=== PATIENT | male | born 1970 | race Caucasian/White ===

== ENCOUNTER 2018-03-16 10:48 | Emergency (ER) | payer OTHER, MEDICARE ==
[2018-03-16 10:58] VITALS: BP 145/101
--- NOTE | 2018-03-16 12:05 | ER Document Report ---
ED Medical Screen (RME) - General Chief Complaint: Urinary Problem Stated Complaint: URINARY PROBLEM Time Seen by Provider: 03/16/18 12:03 Mode of Arrival: Ambulatory Information source: Patient Notes: 47-year-old man reports history of chronic kidney disease presents to the emergency room with "foamy urine". Patient does report having frequent right flank pain. He denies blood in the urine. [facility] TRAVEL OUTSIDE OF THE [place] IN LAST 30 DAYS: No - Related Data Allergies/Adverse Reactions: No Known Allergies Allergy (Verified 03/16/18 10:48) Physical Exam - Vital signs Vitals: Temp Pulse Resp BP Pulse Ox 98.8 F 99 18 145/101 H 96 03/16/18 10:56 03/16/18 10:56 03/16/18 10:56 03/16/18 10:56 03/16/18 10:56 Course - Vital Signs Vital signs: Temp Pulse Resp BP Pulse Ox 98.8 F 99 18 145/101 H 96 03/16/18 10:56 03/16/18 10:56 03/16/18 10:56 03/16/18 10:56 03/16/18 10:56
[2018-03-16 12:30] LABS: ABSOLUTE EOSINOPHILS # (AUTO) 0.1 10^3/uL (0.0-0.6); ABSOLUTE LYMPHOCYTES (AUTO) 2.2 10^3/uL (0.5-4.7); ABSOLUTE MONOCYTES (AUTO) 0.9 10^3/uL (0.1-1.4); ABSOLUTE NEUT (AUTO) 5.7 10^3/uL (1.7-8.2); BASOPHILS % (AUTO) 0.4 % (0-2); EOSINOPHILS % (AUTO) 0.9 % (0-6); HEMATOCRIT 51.8 % (37.9-51.0); HEMOGLOBIN 17.7 g/dL (13.5-17.0); LYMPHOCYTES % (AUTO) 24.8 % (13-45); MEAN CORPUSCULAR HGB CONC 34.2 g/dL (32.0-36.0); MEAN CORPUSCULAR VOLUME 91 fl (80-97); MONOCYTES % (AUTO) 9.6 % (3-13); PLATELET COUNT 190 10^3/uL (150-450); RED BLOOD COUNT 5.71 10^6/uL (4.35-5.55); RED CELL DISTRIBUTION WIDTH 13.8 % (11.5-14.0); SEGMENTED NEUTROPHILS % (AUTO) 64.3 % (42-78); TOTAL CELLS COUNTED % (AUTO) 100 %; WHITE BLOOD COUNT 8.9 10^3/uL (4.0-10.5)
[2018-03-16 12:36] LABS: APPEARANCE,URINE CLEAR; BILIRUBIN,URINE NEGATIVE (NEGATIVE); COLOR,URINE YELLOW; GLUCOSE, URINE NEGATIVE (NEGATIVE); KETONES,URINE NEGATIVE (NEGATIVE); LEUKOCYTE ESTERASE,URINE NEGATIVE (NEGATIVE); NITRITE,URINE NEGATIVE (NEGATIVE); PROTEIN,URINE NEGATIVE (NEGATIVE); URINE SPECIFIC GRAVITY 1.012; UROBILINOGEN,URINE NEGATIVE mg/dL (<2.0)
[2018-03-16 12:51] LABS: ALANINE AMINOTRANSFERASE 54 U/L (21-72); ALBUMIN 4.4 g/dL (3.5-5.0); ALKALINE PHOSPHATASE 105 U/L (38-126); ANION GAP 14 (5-19); ASPARTATE AMINO TRANSFERASE 28 U/L (17-59); BILIRUBIN,DIRECT 0.3 mg/dL (0.0-0.4); BILIRUBIN,TOTAL 0.4 mg/dL (0.2-1.3); BLOOD UREA NITROGEN 20 mg/dL (7-20); CALCIUM 9.7 mg/dL (8.4-10.2); CARBON DIOXIDE 26 mmol/L (22-30); CHLORIDE 105 mmol/L (98-107); GLUCOSE 105 mg/dL (75-110); POTASSIUM 4.6 mmol/L (3.6-5.0); SODIUM 145.2 mmol/L (137-145); TOTAL PROTEIN 7.6 g/dL (6.3-8.2)
--- NOTE | 2018-03-16 13:39 | ER Document Report ---
ED General - General Chief Complaint: Urinary Problem Stated Complaint: URINARY PROBLEM Time Seen by Provider: 03/16/18 12:03 Mode of Arrival: Ambulatory Notes: Patient says he woke this morning about 4 AM and drank some cranberry juice and then urinated and he saw urine covered by white foam. He says this has happened several times over the past week and a half or 2 weeks. Denies any difficulty urinating or discomfort urinating. Has not noticed any blood in his urine. Has not had any fevers. Patient does have a history of renal insufficiency for which he sees Dr. Johnson. He says his most recent creatinine was 1.4 in January. Says he has been told he has stage III kidney disease with flow rate of 53.9. Patient does not know the underlying basis for his renal insufficiency. Says he has had kidney stones before. TRAVEL OUTSIDE OF THE [place] IN LAST 30 DAYS: No - Related Data Allergies/Adverse Reactions: No Known Allergies Allergy (Verified 03/16/18 10:48) Past Medical History - General Information source: Patient - Social History Smoking Status: Former Smoker Chew tobacco use (# tins/day): No Frequency of alcohol use: Rare Drug Abuse: Bath salts Family History: Reviewed & Not Pertinent Patient has suicidal ideation: No Patient has homicidal ideation: No Renal/ Medical History: Reports: Hx End Stage Renal Disease, Hx Renal Insufficiency Review of Systems - Review of Systems Notes: REVIEW OF SYSTEMS: CONSTITUTIONAL : Denies fever. EENT: Denies eye, ear, nose or mouth or throat pain or other symptoms. CARDIOVASCULAR: Denies chest pain. RESPIRATORY: Denies cough, chest congestion, or shortness of breath. GASTROINTESTINAL: Denies abdominal pain or nausea, vomiting, or diarrhea. GENITOURINARY: Denies difficulty or painful urinating, urinary frequency, blood in urine. See HPI. MUSCULOSKELETAL: Denies back or neck pain. Denies joint pain or swelling. SKIN: Denies rash or skin lesions. NEUROLOGICAL: Denies LOC or altered mental status. Denies headache. Denies sensory loss or motor deficits. ALL OTHER SYSTEMS REVIEWED AND NEGATIVE. Physical Exam - Vital signs Vitals: Temp Pulse Resp BP Pulse Ox 98.8 F 99 18 145/101 H 96 03/16/18 10:56 03/16/18 10:56 03/16/18 10:56 03/16/18 10:56 03/16/18 10:56 Interpretation: Normal, Hypertensive - Mild - Notes Notes: PHYSICAL EXAMINATION: GENERAL: Well-appearing, in no acute distress. HEAD: Atraumatic, normocephalic. EYES: Pupils equal round and reactive to light, extraocular movements intact. ENT: oropharynx clear without exudates. Moist mucous membranes. NECK: Normal range of motion, supple. LUNGS: Breath sounds clear and equal bilaterally. HEART: Regular rate and rhythm without murmurs. ABDOMEN: Soft, nontender. No guarding or rebound. No masses. BACK: No tenderness throughout entire back. EXTREMITIES: Normal range of motion without pain. NEUROLOGICAL: Normal speech, normal gait. Normal sensory, motor, and reflex exams. Awake, alert, and oriented x3. Cranial nerves normal. PSYCH: Normal mood, normal affect. SKIN: Warm, dry, no rashes. Course - Re-evaluation Re-evalutation: 03/16/18 13:39 Went over patient's lab results, in particular his kidney functions. All of the latter appear to be nearly normal with a creatinine of 1.26. His hemoglobin (17.7) and hematocrit are increased and patient denies smoking cigarettes and denies using testosterone. I advised him that that was the extent of my knowledge base for polycythemia but recommended he follow-up with a escalation engineer and provided him with Dr. Giles's name and reference information. - Vital Signs Vital signs: Temp Pulse Resp BP Pulse Ox 98.8 F 99 18 145/101 H 96 03/16/18 10:56 03/16/18 10:56 03/16/18 10:56 03/16/18 10:56 03/16/18 10:56 - Laboratory Result Diagrams: 03/16/18 12:10 03/16/18 12:10 Laboratory results interpreted by me: 03/16/18 03/16/18 12:10 12:10 RBC 5.71 H Hgb 17.7 H Hct 51.8 H Sodium 145.2 H Creatinine 1.26 H Discharge - Discharge Clinical Impression: Polycythemia, Renal insufficiency, mild Condition: Fair Disposition: HOME, SELF-CARE Additional Instructions: Very Mild Kidney Function Abnormality Your evaluation has shown a very mild abnormality of your kidney function. An abnormal kidney function test can be caused by dehydration, acute kidney damage, blood vessel disease (such as with diabetes or chronic high blood pressure), or just old age. If the abnormality is caused by an acute disease, it may reverse completely. Have a repeat test. If it's normal, don't worry about your kidneys. If you have a chronic kidney problem, you must be careful with medicines and medical tests. Be sure any doctor who prescribes medicine or orders tests knows that your kidney tests have been abnormal. Some medicines must have the dose reduced, other medicines must be avoided. If the doctor has recommended further workup, be sure to follow up as instructed. Call us if you have new flank pain, vomiting, confusion, or if you' re unable to urinate. Your lab studies for your kidney function are almost normal. Your kidney ultrasound was normal, according to the wafer fab technician. Follow-up with your orchid superintendent, Dr. Johnson. Polycythemia We have found a higher than normal count of red blood cells. When the blood is thick with extra red cells, we call it "polycythemia." Blood cells are created in your bone marrow. In polycythemia, the marrow is over-active, making extra blood cells. Polycythemia can be a reaction to low oxygen in your blood, as occurs with chronic bronchitis or sleep apnea. Sometimes no clear cause is found. Polycythemia can be dangerous, because the thickened blood clots more easily. There's a higher risk of stroke, heart attack, and blood clots. The best treatment for polycythemia is to treat the underlying cause. For example, treating lung disease to increase the blood oxygen may lower the count of red blood cells. If it's not possible to eliminate the cause of polycythemia , you may be treated by removing some of your blood from time to time. This lowers the count of red cells and makes the blood thinner. Call your doctor or return if you have chest pain or new shortness of breath, or symptoms of a stroke such as memory problems, severe headache, vomiting, severe dizziness, weakness or numbness, double vision, a seizure, or problems with balance or coordination. I have provided you with follow-up information for Dr. Giles, a local escalation engineer. FOLLOW-UP CARE: If you have been referred to a physician for follow-up care, call the physician s office for an appointment as you were instructed or within the next two days. If you experience worsening or a significant change in your symptoms, notify the physician immediately or return to the Emergency Department at any time for re-evaluation. Referrals: BETHANIE GILES MD [ACTIVE STAFF] - Follow up in 1 week KATT JOHNSON MD [ACTIVE STAFF] - Follow up as needed
--- NOTE | 2018-03-16 14:35 | RADIOLOGY REPORT (SQ) ---
EXAM DESCRIPTION: U/S RETROPERITON (RENAL/AORTA) COMPLETED DATE/TIME: 03/16/2018 2:28 pm REASON FOR STUDY: assess kidneys (recent right flank pain) COMPARISON: None. TECHNIQUE: Dynamic and static grayscale images acquired of the kidneys and bladder and recorded on P ACS. Additional selected color Doppler and spectral images recorded. LIMITATIONS: None. FINDINGS: RIGHT KIDNEY: Normal size. Normal echogenicity. No solid or suspicious masses. No hydronep hrosis. No calcifications. LEFT KIDNEY: Normal size. Normal echogenicity. No solid or suspicious masses. No hydronephrosis. No calcifications. BLADDER: No masses. OTHER FINDINGS: No other significant finding. IMPRESSION: NORMAL RENAL AND BLADDER ULTRASOUND. TECHNICAL DOCUMENTATION: JOB ID: [id number] [employer]- All Rights Reserved Reading location - IP/workstation name: [email or web address]
== END 2018-03-16 14:36 | disposition home or self-care (01) ==
LOC: ER 10:48
DX: N28.9 Disorder of kidney and ureter, unspecified (principal); D75.1 Secondary polycythemia; Z87.442 Personal history of urinary calculi; Z87.891 Personal history of nicotine dependence
CPT/HCPCS: 36415; 76770; 80053; 81001; 85025; 87086; 99284

== ENCOUNTER 2018-03-18 19:27 | Emergency (ER) | payer OTHER, MEDICARE ==
[2018-03-18] MEDS ORDERED: HYDROMORPHONE HCL INJ/PF 2 MG/ML AMPULE IV ONE ×2 (20:34→23:21)
[2018-03-18] MEDS ORDERED: LORAZEPAM 1 MG TABLET PO ONE (20:39)
--- NOTE | 2018-03-18 20:39 | ER Document Report ---
ED General - General Chief Complaint: Abdominal Pain Stated Complaint: ABDOMINAL PAIN Time Seen by Provider: 03/18/18 20:21 Mode of Arrival: Ambulatory Information source: Patient Notes: 47-year-old male with traumatic brain injury, chronic head and neck pain, reported end-stage renal disease resents with a complaint of right lower quadrant abdominal pain that started 2 days prior to arrival. Patient describes the pain as sharp, stabbing and intermittent. Patient denies associated nausea, vomiting. Patient's last bowel movement was today. He does have a history of constipation secondary to chronic opiate use. TRAVEL OUTSIDE OF THE [place] IN LAST 30 DAYS: No - HPI Onset: Other - 2 days prior to arrival Onset/Duration: Gradual, Persistent Quality of pain: Stabbing Severity: Mild Associated symptoms: Other - constipation. denies: Nausea, Vomiting Exacerbated by: Denies Relieved by: Denies Similar symptoms previously: No Recently seen / treated by doctor: Yes - Related Data Allergies/Adverse Reactions: No Known Allergies Allergy (Verified 03/16/18 10:48) Past Medical History - General Information source: Patient, [facility] Records - Social History Smoking Status: Never Smoker Chew tobacco use (# tins/day): No Frequency of alcohol use: None Drug Abuse: None Lives with: Alone Family History: Reviewed & Not Pertinent Patient has suicidal ideation: No Patient has homicidal ideation: No Renal/ Medical History: Reports: Hx End Stage Renal Disease, Hx Renal Insufficiency. Denies: Hx Peritoneal Dialysis Past Surgical History: Reports: Hx Orthopedic Surgery - RIGHT SHOULDER Review of Systems - Review of Systems Notes: REVIEW OF SYSTEMS: CONSTITUTIONAL : Denies fever, chills, or sweats. Denies recent illness. Denies weight loss, recent hospitalizations. EENT: Denies visual changes, eye pain. Denies nasal or sinus congestion or discharge. Denies sore throat, oral lesions, difficulty swallowing. CARDIOVASCULAR: Denies chest pain. Denies palpitations. Denies lower extremity edema. RESPIRATORY: Denies cough, cold, or chest congestion. Denies shortness of breath, wheezing. GASTROINTESTINAL: Denies abdominal distention. Denies nausea, vomiting, or diarrhea. Denies blood in vomitus, stools, or per rectum. Denies black, tarry stools. Denies constipation. GENITOURINARY: Denies difficulty urinating, painful urination, frequency, blood in urine, or vaginal discharge. MUSCULOSKELETAL: Denies back or neck pain or stiffness. Denies joint pain or swelling. SKIN: Denies rash, lesions or sores. HEMATOLOGIC : Denies easy bruising or bleeding. LYMPHATIC: Denies swollen glands. NEUROLOGICAL: Denies confusion or altered mental status. Denies passing out or loss of consciousness. Denies dizziness or lightheadedness. Denies headache. Denies weakness or paralysis. Denies problems difficulty with ambulation, slurred speech. Denies sensory loss, numbness, or tingling. Denies seizures. PSYCHIATRIC: Denies anxiety or stress. Denies depression, suicidal ideation, or homicidal ideation. Denies visual or auditory hallucinations. Physical Exam - Vital signs Vitals: Temp Pulse Resp BP Pulse Ox 98.3 F 108 H 16 138/90 H 98 03/18/18 19:33 03/18/18 19:33 03/18/18 19:33 03/18/18 19:33 03/18/18 19:33 Interpretation: Hypertensive, Tachycardic. No: Febrile - Notes Notes: PHYSICAL EXAMINATION: GENERAL: Well-appearing, well-nourished and in no acute distress. HEAD: Atraumatic, normocephalic. EYES: Pupils equal round and reactive to light, extraocular movements intact, sclera anicteric, conjunctiva are normal. ENT: Nares patent, oropharynx clear without exudates. Moist mucous membranes. NECK: Normal range of motion, supple without lymphadenopathy LUNGS: Breath sounds clear to auscultation bilaterally and equal. No wheezes rales or rhonchi. HEART: Regular rate and rhythm without murmurs ABDOMEN: Soft, tender to palpation in the right lower quadrant and periumbilical region nondistended abdomen. No guarding, no rebound. No masses appreciated. No hernia Musculoskeletal: Normal range of motion, no pitting or edema. No cyanosis. NEUROLOGICAL: Cranial nerves grossly intact. Normal speech, normal gait. Normal sensory, motor exams PSYCH: Normal mood, normal affect. SKIN: Warm, Dry, normal turgor, no rashes or lesions noted. Course - Re-evaluation Re-evalutation: Laboratory 03/18/18 03/18/18 03/18/18 20:50 20:50 21:36 WBC 8.3 RBC 5.48 Hgb 17.2 H Hct 50.0 MCV 91 MCH 31.4 MCHC 34.4 RDW 13.6 Plt Count 201 Seg Neutrophils % 58.8 Lymphocytes % 29.4 Monocytes % 10.6 Eosinophils % 0.8 Basophils % 0.4 Absolute Neutrophils 4.9 Absolute Lymphocytes 2.4 Absolute Monocytes 0.9 Absolute Eosinophils 0.1 Absolute Basophils 0.0 Sodium 145.4 H Potassium 3.9 Chloride 105 Carbon Dioxide 29 Anion Gap 11 BUN 17 Creatinine 1.33 H Est GFR ( Amer) > 60 Est GFR (Non-Af Amer) 57 L Glucose 86 Calcium 9.4 Total Bilirubin 0.5 Direct Bilirubin 0.3 Neonat Total Bilirubin Not Reportable Neonat Direct Bilirubin Not Reportable Neonat Indirect Bili Not Reportable AST 29 ALT 52 Alkaline Phosphatase 90 Total Protein 7.3 Albumin 4.2 Lipase 80.8 Urine Color YELLOW Urine Appearance CLEAR Urine pH 5.0 Ur Specific [place] 1.018 Urine Protein NEGATIVE Urine Glucose (UA) NEGATIVE Urine Ketones NEGATIVE Urine Blood NEGATIVE Urine Nitrite NEGATIVE Urine Bilirubin NEGATIVE Urine Urobilinogen NEGATIVE Ur Leukocyte Esterase NEGATIVE Urine WBC (Auto) 1 Urine RBC (Auto) 3 Squamous Epi Cells Auto <1 Urine Mucus (Auto) OCC Urine Ascorbic Acid NEGATIVE Abdomen/Pelvis CT 03/18/18 00:00 IMPRESSION: No acute findings. 03/19/18 01:53 47-year-old male with traumatic brain injury, chronic head and neck pain, reported end-stage renal disease resents with a complaint of right lower quadrant abdominal pain that started 2 days prior to arrival. Patient describes the pain as sharp, stabbing and intermittent. Patient denies associated nausea, vomiting. Patient's last bowel movement was today. He does have a history of constipation secondary to chronic opiate use. Patient was seen by myself upon arrival. Vital signs were reviewed. Patient is afebrile, mildly hypertensive and not hypoxic. Patient does not appear toxic or dehydrated. They are in no acute distress. Previous medical records and nursing notes reviewed. Exam is significant for tenderness to palpation in the right lower quadrant. CT of the abdomen and pelvis with p.o. and IV contrast showed no acute findings. CBC is without leukocytosis or anemia. CMP does show a creatinine 1.33 which is the patient's baseline. Patient received 2 mg of IV Dilaudid, 50 mg of fentanyl and 1 mg of Ativan p.o. On reevaluation he states his pain is still present. I explained to the patient that there is no surgical emergency at this time and that [facility]. Patient provided the opportunity to ask questions, and express concerns. Discharge instructions discussed. Patient is agreeable with discharge home. Return indications explained and discussed with the patient who displays understanding. Patient encouraged to return to the emergency department immediately with any concerns. 03/19/18 01:53 03/19/18 01:55 - Vital Signs Vital signs: Temp Pulse Resp BP Pulse Ox 99.0 F 86 16 139/96 H 98 03/19/18 01:14 03/19/18 01:14 03/19/18 01:14 03/19/18 01:14 03/19/18 01:14 - Laboratory Result Diagrams: 03/18/18 20:50 03/18/18 20:50 Laboratory results interpreted by me: 03/18/18 03/18/18 20:50 20:50 Hgb 17.2 H Sodium 145.4 H Creatinine 1.33 H Est GFR (Non-Af Amer) 57 L - Diagnostic Test Radiology reviewed: Image reviewed, Reports reviewed Discharge - Discharge Clinical Impression: Right lower quadrant abdominal pain, History of traumatic brain injury, Renal insufficiency, mild Chronic pain Qualifiers: Chronic pain type: other chronic pain Qualified Code(s): G89.29 - Other chronic pain Condition: Good Disposition: HOME, SELF-CARE Instructions: Abdominal Pain ([facility]), Bulk Laxatives, Kidney Injury ([facility]), Observation for Appendicitis ([facility]) Additional Instructions: [facility]. Prescriptions: Dicyclomine HCl [Bentyl 20 mg Tablet] 20 mg PO Q6H PRN #12 tablet PRN Reason: Abdominal Cramping
[2018-03-18 22:25] LABS: APPEARANCE,URINE CLEAR; BILIRUBIN,URINE NEGATIVE (NEGATIVE); COLOR,URINE YELLOW; GLUCOSE, URINE NEGATIVE (NEGATIVE); KETONES,URINE NEGATIVE (NEGATIVE); LEUKOCYTE ESTERASE,URINE NEGATIVE (NEGATIVE); NITRITE,URINE NEGATIVE (NEGATIVE); PROTEIN,URINE NEGATIVE (NEGATIVE); URINE SPECIFIC GRAVITY 1.018; UROBILINOGEN,URINE NEGATIVE mg/dL (<2.0)
[2018-03-18 22:30] LABS: ABSOLUTE EOSINOPHILS # (AUTO) 0.1 10^3/uL (0.0-0.6); ABSOLUTE LYMPHOCYTES (AUTO) 2.4 10^3/uL (0.5-4.7); ABSOLUTE MONOCYTES (AUTO) 0.9 10^3/uL (0.1-1.4); ABSOLUTE NEUT (AUTO) 4.9 10^3/uL (1.7-8.2); BASOPHILS % (AUTO) 0.4 % (0-2); EOSINOPHILS % (AUTO) 0.8 % (0-6); HEMOGLOBIN 17.2 g/dL (13.5-17.0); LYMPHOCYTES % (AUTO) 29.4 % (13-45); MEAN CORPUSCULAR HEMOGLOBIN 31.4 pg (27.0-33.4); MEAN CORPUSCULAR HGB CONC 34.4 g/dL (32.0-36.0); MEAN CORPUSCULAR VOLUME 91 fl (80-97); MONOCYTES % (AUTO) 10.6 % (3-13); PLATELET COUNT 201 10^3/uL (150-450); RED BLOOD COUNT 5.48 10^6/uL (4.35-5.55); RED CELL DISTRIBUTION WIDTH 13.6 % (11.5-14.0); SEGMENTED NEUTROPHILS % (AUTO) 58.8 % (42-78); TOTAL CELLS COUNTED % (AUTO) 100 %; WHITE BLOOD COUNT 8.3 10^3/uL (4.0-10.5)
[2018-03-18 22:48] LABS: ALANINE AMINOTRANSFERASE 52 U/L (21-72); ALBUMIN 4.2 g/dL (3.5-5.0); ALKALINE PHOSPHATASE 90 U/L (38-126); ANION GAP 11 (5-19); ASPARTATE AMINO TRANSFERASE 29 U/L (17-59); BILIRUBIN,DIRECT 0.3 mg/dL (0.0-0.4); BILIRUBIN,TOTAL 0.5 mg/dL (0.2-1.3); BLOOD UREA NITROGEN 17 mg/dL (7-20); CALCIUM 9.4 mg/dL (8.4-10.2); CARBON DIOXIDE 29 mmol/L (22-30); CHLORIDE 105 mmol/L (98-107); GLUCOSE 86 mg/dL (75-110); LIPASE 80.8 U/L (23-300); POTASSIUM 3.9 mmol/L (3.6-5.0); SODIUM 145.4 mmol/L (137-145); TOTAL PROTEIN 7.3 g/dL (6.3-8.2)
[2018-03-18] MEDS ORDERED: NORMAL SALINE 1000 ML 1,000 ML IV ONE (22:55)
--- NOTE | 2018-03-19 00:27 | RADIOLOGY REPORT (SQ) ---
EXAM DESCRIPTION: CT ABDOMEN PELVIS WITH IV CONTRAST COMPLETED DATE/TME: 03/18/2018 00:00 CLINICAL HISTORY: 47 years Male, rlq abd pain Comparison: None. Technique: IV and oral contrast. Coronal and sagittal reformat. This exam was performed according to our departmental dose-optimization program, which includes automated exposure control, adjustment of the mA and/or kV according to patient size and/or use of iterative reconstruction technique. [facility]: Dose Right [facility]: CareDose [facility]: Dose Right [facility]: Teradose 4D [facility]: [employer] LIMITATIONS: None Findings: No ascites. Normal appendix. Inferior thorax, likely benign low attenuation left hepatic cyst, gallbladder, pancreas, spleen, adrenals, renal system, gastrointestinal tract, pelvic organs, lymphatics, vasculature, and musculoskeleton appear otherwise unremarkable. IMPRESSION: No acute findings.
[2018-03-19] MEDS ORDERED: FENTANYL CITRATE INJ/PF 100 MCG/2 ML AMPUL IV ONE (00:45)
[2018-03-19 01:17] VITALS: BP 139/96
== END 2018-03-19 01:24 | disposition home or self-care (01) ==
LOC: ER 19:27
DX: R10.31 Right lower quadrant pain (principal); R10.813 Right lower quadrant abdominal tenderness; R10.815 Periumbilic abdominal tenderness; N28.9 Disorder of kidney and ureter, unspecified; I10 Essential (primary) hypertension; G89.29 Other chronic pain; R51 Headache; M54.2 Cervicalgia; Z87.820 Personal history of traumatic brain injury; Z87.19 Personal history of other diseases of the digestive system
CPT/HCPCS: 96376; 99284; 96361; 96374; 96375; 36415; 83690; 85025; 80053; 81001; 74177; J3010; J1170; J7030

== ENCOUNTER 2018-03-30 11:52 | Emergency (ER) | payer OTHER, MEDICARE ==
--- NOTE | 2018-03-30 12:35 | ER Document Report ---
ED Medical Screen (RME) - General Chief Complaint: Abdominal Pain Stated Complaint: ABDOMINAL PAIN,NAUSEA Time Seen by Provider: 03/30/18 12:32 Mode of Arrival: Ambulatory Information source: Patient TRAVEL OUTSIDE OF THE [place] IN LAST 30 DAYS: No - HPI Patient complains to provider of: abd pain Onset: Other - pt states he was seen here 2 wks ago with similar pain (CT neg) and has had this pain for the past feew days, worse today - Related Data Allergies/Adverse Reactions: No Known Allergies Allergy (Verified 03/30/18 11:53) Past Medical History - Social History Chew tobacco use (# tins/day): No Frequency of alcohol use: None Drug Abuse: None Renal/ Medical History: Reports: Hx End Stage Renal Disease, Hx Renal Insufficiency. Denies: Hx Peritoneal Dialysis Past Surgical History: Reports: Hx Orthopedic Surgery - RIGHT SHOULDER Physical Exam - Vital signs Vitals: Temp Pulse Resp BP Pulse Ox 98.6 F 102 H 16 135/97 H 97 03/30/18 12:10 03/30/18 12:10 03/30/18 12:10 03/30/18 12:10 03/30/18 12:10 Course - Vital Signs Vital signs: Temp Pulse Resp BP Pulse Ox 98.6 F 102 H 16 135/97 H 97 03/30/18 12:10 03/30/18 12:10 03/30/18 12:10 03/30/18 12:10 03/30/18 12:10
[2018-03-30 13:25] LABS: ABSOLUTE EOSINOPHILS # (AUTO) 0.1 10^3/uL (0.0-0.6); ABSOLUTE MONOCYTES (AUTO) 0.7 10^3/uL (0.1-1.4); BASOPHILS % (AUTO) 0.4 % (0-2); EOSINOPHILS % (AUTO) 1.1 % (0-6); HEMATOCRIT 49.1 % (37.9-51.0); HEMOGLOBIN 16.9 g/dL (13.5-17.0); LYMPHOCYTES % (AUTO) 29.1 % (13-45); MEAN CORPUSCULAR HEMOGLOBIN 31.1 pg (27.0-33.4); MEAN CORPUSCULAR HGB CONC 34.4 g/dL (32.0-36.0); MEAN CORPUSCULAR VOLUME 91 fl (80-97); RED BLOOD COUNT 5.43 10^6/uL (4.35-5.55); RED CELL DISTRIBUTION WIDTH 13.5 % (11.5-14.0); SEGMENTED NEUTROPHILS % (AUTO) 58.4 % (42-78); TOTAL CELLS COUNTED % (AUTO) 100 %; WHITE BLOOD COUNT 6.8 10^3/uL (4.0-10.5)
[2018-03-30 13:41] LABS: PLATELET COUNT 168 10^3/uL (150-450)
--- NOTE | 2018-03-30 13:41 | RADIOLOGY REPORT (SQ) ---
EXAM DESCRIPTION: ACUTE ABDOMEN SERIES COMPLETED DATE/TIME: 03/30/2018 1:27 pm REASON FOR STUDY: abd pain COMPARISON: None. NUMBER OF VIEWS: Three views. TECHNIQUE: Frontal chest, supine abdomen and upright/decubitus abdomen radiographic images acquired. LIMITATIONS: None. FINDINGS: CHEST: Lungs clear of infiltrates. FREE AIR: None. No abnormal gas collections. BOWEL GAS PATTERN: Nonobstructive pattern. No dilated loops or air fluid levels. CALCIFICATIONS: No suspicious calcifications. HARDWARE: None in the abdomen. SOFT TISSUES: No gross mass or suggestion of organomegaly. BONES: No acute fracture. No worrisome bone lesions. OTHER: No other significant finding. IMPRESSION: NO RADIOGRAPHIC EVIDENCE FOR ACUTE ABDOMINAL DISEASE. TECHNICAL DOCUMENTATION: JOB ID: [id number] [employer]- All Rights Reserved Reading location - IP/workstation name: [email or web address]
[2018-03-30 13:56] LABS: ALANINE AMINOTRANSFERASE 68 U/L (21-72); ALKALINE PHOSPHATASE 84 U/L (38-126); ANION GAP 11 (5-19); ASPARTATE AMINO TRANSFERASE 29 U/L (17-59); BILIRUBIN,DIRECT 0.3 mg/dL (0.0-0.4); BILIRUBIN,TOTAL 0.6 mg/dL (0.2-1.3); BLOOD UREA NITROGEN 17 mg/dL (7-20); CALCIUM 9.3 mg/dL (8.4-10.2); CARBON DIOXIDE 25 mmol/L (22-30); CHLORIDE 107 mmol/L (98-107); GLUCOSE 100 mg/dL (75-110); LIPASE 85.7 U/L (23-300); POTASSIUM 4.5 mmol/L (3.6-5.0); SODIUM 143.4 mmol/L (137-145); TOTAL PROTEIN 6.7 g/dL (6.3-8.2)
[2018-03-30] MEDS ORDERED: HYDROMORPHONE HCL INJ/PF 2 MG/ML AMPULE IV ONE (15:28)
[2018-03-30] MEDS ORDERED: NORMAL SALINE 1000 ML 1,000 ML IV ONE ×2 (15:28→15:47)
[2018-03-30] MEDS ORDERED: MAGNESIUM CITRATE 296 ML BOTTLE PO ONE (15:36)
[2018-03-30] MEDS ORDERED: MINERAL OIL 30 ML UDCUP PR ONE (15:37)
--- NOTE | 2018-03-30 15:40 | ER Document Report ---
ED GI/ - General Chief Complaint: Abdominal Pain Stated Complaint: ABDOMINAL PAIN,NAUSEA Time Seen by Provider: 03/30/18 12:32 Mode of Arrival: Ambulatory Information source: Patient Notes: Patient presents complaining of right-sided abdominal pain daily for the past month. Patient states that he has had some dysuria symptoms as well for the past month. Patient does report nausea. No vomiting or diarrhea. Last bowel movement was today. Patient denies any fever. TRAVEL OUTSIDE OF THE [place] IN LAST 30 DAYS: No - HPI Patient complains to provider of: Abdominal pain. No: Vomiting Onset: Other - 1 month Timing/Duration: Persistent Quality of pain: Achy, Dull Pain Level: 3 Location: Other - Right side of the abdomen Associated symptoms: Nausea. denies: Constipation, Fever, Urinary hesitancy, Urinary frequency, Urinary retention, Urinary urgency, Vomiting Exacerbated by: Denies Relieved by: Denies Similar symptoms previously: Yes Recently seen / treated by doctor: Yes - Related Data Allergies/Adverse Reactions: No Known Allergies Allergy (Verified 03/30/18 11:53) Past Medical History - General Information source: Patient - Social History Smoking Status: Former Smoker Chew tobacco use (# tins/day): No Frequency of alcohol use: None Drug Abuse: None Occupation: None Lives with: Spouse/Significant other Family History: Reviewed & Not Pertinent Patient has suicidal ideation: No Patient has homicidal ideation: No - Past Medical History Cardiac Medical History: Reports: Hx Hypercholesterolemia Renal/ Medical History: Reports: Hx Renal Insufficiency. Denies: Hx Peritoneal Dialysis Psychiatric Medical History: Reports: Hx Anxiety, Hx Depression Traumatic Medical History: Reports: Hx Traumatic Brain Injury Past Surgical History: Reports: Hx Orthopedic Surgery - RIGHT SHOULDER Review of Systems - Review of Systems Constitutional: No symptoms reported. denies: Fever, Recent illness EENT: No symptoms reported Cardiovascular: No symptoms reported. denies: Chest pain Respiratory: No symptoms reported. denies: Cough, Short of breath Gastrointestinal: Abdominal pain, Nausea. denies: Vomiting Genitourinary: Dysuria Male Genitourinary: No symptoms reported Musculoskeletal: Back pain Skin: No symptoms reported Hematologic/Lymphatic: No symptoms reported Neurological/Psychological: No symptoms reported Physical Exam - Vital signs Vitals: Temp Pulse Resp BP Pulse Ox 98.6 F 102 H 16 135/97 H 97 03/30/18 12:10 03/30/18 12:10 03/30/18 12:10 03/30/18 12:10 03/30/18 12:10 - General General appearance: Appears well, Alert In distress: None - HEENT Head: Normocephalic, Atraumatic Eyes: Normal Conjunctiva: Normal Nasal: Normal Mouth/Lips: Normal Pharynx: Normal Neck: Normal - Respiratory Respiratory status: No respiratory distress Chest status: Nontender Breath sounds: Normal. No: Rales, Rhonchi, Stridor, Wheezing Chest palpation: Normal - Cardiovascular Rhythm: Regular Heart sounds: S1 appreciated, S2 appreciated Murmur: No - Abdominal Inspection: Normal Distension: No distension Bowel sounds: Normal Tenderness: Tender - right mid abd pain. No: McBurney's point, Field's sign, Guarding Organomegaly: No organomegaly - Back Back: Tender - Lower lumbar paraspinal tenderness. No: Deformity/step-off, CVA tenderness, Vertebra tenderness - Extremities General upper extremity: Normal inspection, Normal ROM General lower extremity: Normal inspection, Normal ROM - Neurological Neuro grossly intact: Yes Cognition: Normal Malik Coma Scale Eye Opening: Spontaneous Malik Coma Scale Verbal: Oriented Malik Coma Scale Motor: Obeys Commands Malik Coma Scale Total: 15 - Psychological Associated symptoms: Normal affect, Normal mood - Skin Skin Temperature: Warm Skin Moisture: Dry Skin Color: Normal Course - Re-evaluation Re-evalutation: 03/30/18 15:[address] James regarding patient presentation. Dr. James familiar with patient and she did see him on his last year visit. Does not recommend repeat CT imaging. Advises giving magnesium citrate as well as enema and encouraging patient to use MiraLAX at home to help manage constipation symptoms given his chronic opioid use. 03/30/18 16:45 Discussed plan of care with patient. Patient encouraged to drink magnesium citrate. Patient only pain at bilateral stating that he does not like the taste due to tiredness. Patient advised that he will need to continue his MiraLAX at home after he receives his enema here in the emergency department. Patient verbalized understanding and agrees with plan of care. Patient has had negative renal ultrasound as well as negative CT scan of the abdomen and pelvis here recently for these pain symptoms. Abdomen is soft without guarding. Patient does not have a fever or any leukocytosis. Patient does take chronic narcotics and does have large amount of stool noted on abdominal films. No concern for obstruction at this time. Patient without any vomiting. Patient presents with abdominal pain without signs of peritonitis or other life- threatening or serious etiology. Patient appears stable for discharge and has been instructed to return immediately if the symptoms worsen in any way, or in 8 -12 hours if not improved for reevaluation. The patient has been instructed to return if the symptoms worsen or change in any way. 03/30/18 16:52 Patient refuses to have an enema performed here stating that he would prefer to administer this himself in the privacy of his home. - Vital Signs Vital signs: Temp Pulse Resp BP Pulse Ox 98.7 F 81 16 146/99 H 99 03/30/18 17:01 03/30/18 17:01 03/30/18 12:10 03/30/18 17:01 03/30/18 17:01 - Laboratory Result Diagrams: 03/30/18 12:54 03/30/18 12:54 Laboratory results interpreted by me: Labs- Entire Visit 03/30/18 03/30/18 03/30/18 12:54 12:54 15:10 WBC 6.8 RBC 5.43 Hgb 16.9 Hct 49.1 MCV 91 MCH 31.1 MCHC 34.4 RDW 13.5 Plt Count 168 Seg Neutrophils % 58.4 Lymphocytes % 29.1 Monocytes % 11.0 Eosinophils % 1.1 Basophils % 0.4 Absolute Neutrophils 4.0 Absolute Lymphocytes 2.0 Absolute Monocytes 0.7 Absolute Eosinophils 0.1 Absolute Basophils 0.0 Sodium 143.4 Potassium 4.5 Chloride 107 Carbon Dioxide 25 Anion Gap 11 BUN 17 Creatinine 1.18 Est GFR ( Amer) > 60 Est GFR (Non-Af Amer) > 60 Glucose 100 Calcium 9.3 Total Bilirubin 0.6 Direct Bilirubin 0.3 Neonat Total Bilirubin Not Reportable Neonat Direct Bilirubin Not Reportable Neonat Indirect Bili Not Reportable AST 29 ALT 68 Alkaline Phosphatase 84 Total Protein 6.7 Albumin 4.0 Lipase 85.7 Urine Color YELLOW Urine Appearance CLEAR Urine pH 5.0 Ur Specific Sarita 1.016 Urine Protein NEGATIVE Urine Glucose (UA) NEGATIVE Urine Ketones NEGATIVE Urine Blood NEGATIVE Urine Nitrite NEGATIVE Urine Bilirubin NEGATIVE Urine Urobilinogen NEGATIVE Ur Leukocyte Esterase NEGATIVE Urine WBC (Auto) 0 Squamous Epi Cells Auto <1 Urine Mucus (Auto) RARE Urine Ascorbic Acid NEGATIVE Reviewed lab reports from patient's previous 2 ER visits - Diagnostic Test Radiology reviewed: Image reviewed, Reports reviewed - Reviewed reports from patient's 2 previous ER visits Discharge - Discharge Clinical Impression: Chronic, continuous use of opioids Abdominal pain Qualifiers: Abdominal location: unspecified location Qualified Code(s): R10.9 - Unspecified abdominal pain Constipation Qualifiers: Constipation type: unspecified constipation type Qualified Code(s): K59.00 - Constipation, unspecified Condition: Stable Disposition: HOME, SELF-CARE Instructions: Abdominal Pain ([facility]), Constipation ([facility]) Additional Instructions: Return immediately for any new or worsening symptoms Followup with your primary care provider, call tomorrow to make a followup appointment Take your MiraLAX at home to help with your constipation symptoms. Be sure to stay well-hydrated. You may take a stool softener [id number] such as Colace to help make your bowels easy to pass Prescriptions: Ondansetron HCl [Zofran 4 mg Tablet] 1 - 2 tab PO Q6 PRN #12 tablet PRN Reason: Referrals: [facility] [Provider Group] - Follow up tomorrow
[2018-03-30 15:48] LABS: APPEARANCE,URINE CLEAR; BILIRUBIN,URINE NEGATIVE (NEGATIVE); COLOR,URINE YELLOW; GLUCOSE, URINE NEGATIVE (NEGATIVE); KETONES,URINE NEGATIVE (NEGATIVE); LEUKOCYTE ESTERASE,URINE NEGATIVE (NEGATIVE); NITRITE,URINE NEGATIVE (NEGATIVE); PROTEIN,URINE NEGATIVE (NEGATIVE); URINE SPECIFIC GRAVITY 1.016; UROBILINOGEN,URINE NEGATIVE mg/dL (<2.0)
[2018-03-30 17:06] VITALS: BP 146/99
== END 2018-03-30 17:16 | disposition home or self-care (01) ==
LOC: ER 11:52
DX: F11.10 Opioid abuse, uncomplicated (principal); K59.00 Constipation, unspecified; R10.9 Unspecified abdominal pain; R11.0 Nausea; R30.0 Dysuria; E78.00 Pure hypercholesterolemia, unspecified; Z87.820 Personal history of traumatic brain injury
CPT/HCPCS: 99284; 96361; 96374; 36415; 83690; 85025; 80053; 81001; 74022; J3490 ×2; J1170; J7030

== ENCOUNTER → 2018-06-26 | Outpatient (CLI) | payer OTHER ==
--- NOTE | 2018-06-26 13:46 | RADIOLOGY REPORT (SQ) ---
EXAM DESCRIPTION: U/S RETROPERITON (RENAL/AORTA) COMPLETED DATE/TIME: 06/26/2018 12:18 pm REASON FOR STUDY: CHRONIC KIDNEY DISEASE, STAGE 3 (MODERATE) N18.3 CHRONIC KIDNEY DISEASE, STAGE 3 (MODERATE) COMPARISON: 03/16/2018 TECHNIQUE: Dynamic and static grayscale images acquired of the kidneys and bladder and recorded on P ACS. Additional selected color Doppler and spectral images recorded. LIMITATIONS: None. FINDINGS: RIGHT KIDNEY: Normal size, 9.2 cm. Normal echogenicity. No solid or suspicious masses. Th ere is a subcentimeter sized cyst. No hydronephrosis. No calcifications. LEFT KIDNEY: Normal size, 9.3 cm. Normal echogenicity. No solid or suspicious masses. No hydronephro sis. No calcifications. BLADDER: No masses. Ureteral jets were not seen. OTHER FINDINGS: No other significant finding. IMPRESSION: NORMAL RENAL AND BLADDER ULTRASOUND. TECHNICAL DOCUMENTATION: JOB ID: [id number] [employer]- All Rights Reserved Reading location - IP/workstation name: [email or web address]
== END ==
LOC: RAD 10:54
PROVIDERS: ATTEND Clinical Nurse Specialist Adult Health
DX: N18.3 Chronic kidney disease, stage 3 (moderate) (principal)
CPT/HCPCS: 76770

== ENCOUNTER → 2018-07-23 | Outpatient (CLI) | payer OTHER ==
--- NOTE | 2018-07-23 12:18 | RADIOLOGY REPORT (SQ) ---
EXAM DESCRIPTION: CT HEAD WITHOUT COMPLETED DATE/TIME: 07/23/2018 10:15 am REASON FOR STUDY: SYNCOPE AND COLLAPSE (R55) R55 SYNCOPE AND COLLAPSE COMPARISON: None. TECHNIQUE: Axial images acquired through the brain without intravenous contrast. Images reviewed wi th bone, brain and subdural windows. Additional sagittal and coronal reconstructions were generated. Images stored on PACS. All CT scanners at this facility use dose modulation, iterative reconstruction, and/or weight based d osing when appropriate to reduce radiation dose to as low as reasonably achievable (ALARA). [facility]: Dose Right [facility]: CareDose [facility]: Dose Right [facility]: Teradose 4D [facility]: FMS [facility] RADIATION DOSE: mGy. LIMITATIONS: None. FINDINGS: VENTRICLES: Normal size and contour. CEREBRUM: No masses. No hemorrhage. No midline shift. No evidence for acute infarction. Normal gra y/white matter differentiation. No areas of low density in the white matter. CEREBELLUM: No masses. No hemorrhage. No alteration of density. No evidence for acute infarction. EXTRAAXIAL SPACES: No fluid collections. No masses. ORBITS AND GLOBE: No intra- or extraconal masses. Normal contour of globe without masses. CALVARIUM: No fracture. PARANASAL SINUSES: No fluid or mucosal thickening. SOFT TISSUES: No mass or hematoma. OTHER: No other significant finding. IMPRESSION: NORMAL BRAIN CT WITHOUT CONTRAST. EVIDENCE OF ACUTE STROKE: NO. COMMENT: Quality ID # 436: Final reports with documentation of one or more dose reduction techniques (e.g., Automated exposure control, adjustment of the mA and/or kV according to patient size, use of iterative reconstruction technique) TECHNICAL DOCUMENTATION: JOB ID: [id number] [employer]- All Rights Reserved Reading location - IP/workstation name: [email or web address]
--- NOTE | 2018-07-23 12:23 | RADIOLOGY REPORT (SQ) ---
EXAM DESCRIPTION: CAROTID DOPPLER COMPLETED DATE/TIME: 07/23/2018 11:42 am REASON FOR STUDY: SYNCOPE AND COLLAPSE R55 SYNCOPE AND COLLAPSE COMPARISON: None. TECHNIQUE: Grayscale ultrasound, Doppler velocity and spectra, and color Doppler images acquired of the extra-cranial carotid and vertebral arteries. Images stored on PACS. LIMITATIONS: None. FINDINGS: RIGHT CAROTID CCA Velocities: Within normal limits. ICA Velocities Peak systolic 1.3 m/s. End diastolic 0.23 m/s. Proximal ICA/CCA peak systolic ratio 1.1. Mild intimal thickening without significant plaque. Borderline elevated velocity in the right international marketing intern al carotid but no focal stenosis identified. LEFT CAROTID CCA Velocities: Within normal limits. ICA Velocities Peak systolic 0.85 m/s. End diastolic 0.33 m/s. Proximal ICA/CCA peak systolic ratio 0.65. Mild intimal wall thickening without significant plaque. VERTEBRAL ARTERIES: Antegrade flow. Normal waveforms. SUBCLAVIAN ARTERIES: No finding. OTHER: No other significant finding. IMPRESSION: No hemodynamically significant stenosis suggested. COMMENT: Quality ID #[id number]: Velocity criteria are extrapolated from the diameter data as defined by t he Society of Radiologists in Ultrasound Consensus Conference. Radiology 2003: 229; 340-346. TECHNICAL DOCUMENTATION: JOB ID: [id number] [employer]- All Rights Reserved Reading location - IP/workstation name: [email or web address]
== END ==
LOC: RAD 09:53
PROVIDERS: ATTEND Clinical Nurse Specialist Adult Health
DX: R55 Syncope and collapse (principal)
CPT/HCPCS: 70450; 93880

== ENCOUNTER 2019-06-02 03:05 | Emergency (ER) | payer MEDICARE, OTHER ==
[2019-06-02 03:22] VITALS: BP 149/96
[2019-06-02] MEDS ORDERED: LORAZEPAM 1 MG TABLET PO ONE (04:19)
--- NOTE | 2019-06-02 04:22 | ER Document Report ---
ED Psych Disorder / Suicide - General Chief Complaint: Anxiety Stated Complaint: ANXIETY Time Seen by Provider: 06/02/19 03:54 Primary Care Provider: SON ROBERTS NP [Primary Care Provider] - Follow up as needed Notes: Patient is a 48-year-old male that comes emergency department for chief complaint of "panicking" and not being able to calm down. He states that for the past month he has been "dealing with something" that he "cannot get over". He states that he "broke the law" and he feels like he should not be out in society because it is not safe. He denies that he is suicidal, he denies that he is homicidal or has any plans of hurting anybody in any way, he states that the way he broke the law did not hurt anybody but he still "cannot believe that I did it". He states that he was placed on Xanax about 2-3 weeks ago by his psychiatrist Dr. Garcia, he states that he needed it "more than I expected and I ran out too early". Patient has a history of TBI, anxiety/depression, and chronic neck pain in addition to this, on pain management for this. He denies alcohol or recreational drugs. Patient does state that he also has some mild chronic renal insufficiency. TRAVEL OUTSIDE OF THE [place] IN LAST 30 DAYS: No - Related Data Allergies/Adverse Reactions: No Known Allergies Allergy (Verified 03/30/18 11:53) Past Medical History - General Information source: Patient - Social History Smoking Status: Never Smoker Frequency of alcohol use: None Drug Abuse: None Lives with: Alone Family History: Reviewed & Not Pertinent Patient has suicidal ideation: No Patient has homicidal ideation: No - Past Medical History Cardiac Medical History: Reports: Hx Hypercholesterolemia Renal/ Medical History: Reports: Hx Renal Insufficiency. Denies: Hx End Stage Renal Disease - Chronic kidney disease, Hx Peritoneal Dialysis Psychiatric Medical History: Reports: Hx Anxiety, Hx Depression Traumatic Medical History: Reports: Hx Traumatic Brain Injury Past Surgical History: Reports: Hx Orthopedic Surgery - RIGHT SHOULDER - Immunizations Immunizations up to date: Yes Hx Diphtheria, Pertussis, Tetanus Vaccination: Yes Review of Systems - Review of Systems Constitutional: No symptoms reported EENT: No symptoms reported Cardiovascular: No symptoms reported Respiratory: No symptoms reported Gastrointestinal: No symptoms reported Genitourinary: No symptoms reported Male Genitourinary: No symptoms reported Musculoskeletal: No symptoms reported Skin: No symptoms reported Hematologic/Lymphatic: No symptoms reported Neurological/Psychological: See HPI Physical Exam - Vital signs Vitals: Temp Pulse Resp BP Pulse Ox 98.8 F 96 20 149/96 H 95 06/02/19 03:15 06/02/19 03:15 06/02/19 03:15 06/02/19 03:15 06/02/19 03:15 - Notes Notes: GENERAL: Alert, fidgety and jittery but not in distress HEAD: Normocephalic, atraumatic. EYES: Pupils small but equal, round, and reactive to light. Extraocular movements intact. ENT: Oral mucosa moist, tongue midline. Oropharynx unremarkable. Airway patent. NECK: Full range of motion. Supple. Trachea midline. LUNGS: Clear to auscultation bilaterally, no wheezes, rales, or rhonchi. No respiratory distress. HEART: Regular rate and rhythm. No murmur ABDOMEN: Soft, non-tender. Non-distended. GENITOURINARY: Deferred EXTREMITIES: Moves all 4 extremities spontaneously. No edema, normal radial and dorsalis pedis pulses bilaterally. No cyanosis. BACK: no cervical, thoracic, lumbar midline tenderness. No saddle anesthesia, normal distal neurovascular exam. NEUROLOGICAL: Alert and oriented x3. Normal speech. Cranial nerves II through XII grossly intact. PSYCH: Patient becomes very tremulous when speaking, appears to become anxious, makes poor eye contact. This resolves when he stops conversation. SKIN: Warm, dry, normal turgor. No rashes or lesions noted. Course - Re-evaluation Re-evalutation: Patient is anxious, when he talks about his situation he becomes extremely tremulous, however he is cooperative, follows directions, denies SI or HI, and is here voluntarily. CBC unremarkable, chemistry shows creatinine at baseline and actually slightly improved, opiates positive as expected, EKG nonspecific without acute findings. Vital signs unremarkable. Discussed with Dr. Garcia. Patient is medically cleared, here voluntarily wanting to speak to mental health team. - Vital Signs Vital signs: Temp Pulse Resp BP Pulse Ox 98.8 F 96 20 149/96 H 95 06/02/19 03:15 06/02/19 03:15 06/02/19 03:15 06/02/19 03:15 06/02/19 03:15 - Laboratory Result Diagrams: 06/02/19 04:40 06/02/19 04:40 Laboratory results interpreted by me: 06/02/19 06/02/19 06/02/19 04:40 04:40 05:30 RDW 15.3 H Addison % (Auto) 13.7 H Potassium 3.5 L Creatinine 1.31 H Est GFR (MDRD) Non-Af 58 L Glucose 122 H AST 99 H Urine Ketones TRACE H Salicylates 1.5 L Acetaminophen < 10 L Discharge - Discharge Clinical Impression: Anxiety Condition: Stable Disposition: PSYCH HOSP/UNIT Referrals: SON ROBERTS NP [Primary Care Provider] - Follow up as needed
[2019-06-02 04:55] LABS: ABSOLUTE BASOPHILS # (AUTO) 0.1 10^3/uL (0.0-0.2); ABSOLUTE EOSINOPHILS # (AUTO) 0.1 10^3/uL (0.0-0.6); ABSOLUTE LYMPHOCYTES (AUTO) 2.1 10^3/uL (0.5-4.7); ABSOLUTE MONOCYTES (AUTO) 1.2 10^3/uL (0.1-1.4); ABSOLUTE NEUT (AUTO) 5.5 10^3/uL (1.7-8.2); BASOPHILS % (AUTO) 0.7 % (0-2); EOSINOPHILS % (AUTO) 0.6 % (0-6); HEMATOCRIT 44.2 % (37.9-51.0); HEMOGLOBIN 14.7 g/dL (13.5-17.0); LYMPHOCYTES % (AUTO) 23.6 % (13-45); MEAN CORPUSCULAR HEMOGLOBIN 28.2 pg (27.0-33.4); MEAN CORPUSCULAR HGB CONC 33.2 g/dL (32.0-36.0); MEAN CORPUSCULAR VOLUME 85 fl (80-97); MONOCYTES % (AUTO) 13.7 % (3-13); PLATELET COUNT 197 10^3/uL (150-450); RED BLOOD COUNT 5.21 10^6/uL (4.35-5.55); RED CELL DISTRIBUTION WIDTH 15.3 % (11.5-14.0); SEGMENTED NEUTROPHILS % (AUTO) 61.4 % (42-78); TOTAL CELLS COUNTED % (AUTO) 100 %
[2019-06-02 05:12] LABS: ALBUMIN 4.4 g/dL (3.5-5.0); ALKALINE PHOSPHATASE 76 U/L (38-126); ANION GAP 12 (5-19); ASPARTATE AMINO TRANSFERASE 99 U/L (17-59); BILIRUBIN,DIRECT 0.2 mg/dL (0.0-0.4); BILIRUBIN,TOTAL 1.1 mg/dL (0.2-1.3); BLOOD UREA NITROGEN 13 mg/dL (7-20); CALCIUM 9.6 mg/dL (8.4-10.2); CARBON DIOXIDE 25 mmol/L (22-30); CHLORIDE 102 mmol/L (98-107); GLUCOSE 122 mg/dL (75-110); POTASSIUM 3.5 mmol/L (3.6-5.0); SALICYLATE 1.5 mg/dL (2.0-20.0); TOTAL PROTEIN 7.3 g/dL (6.3-8.2)
[2019-06-02 05:15] LABS: ACETAMINOPHEN < 10 ug/mL (10-30); ALCOHOL < 10 mg/dL (NONE DETECTED)
[2019-06-02 05:43] LABS: APPEARANCE,URINE CLEAR; BILIRUBIN,URINE NEGATIVE (NEGATIVE); COLOR,URINE YELLOW; GLUCOSE, URINE NEGATIVE (NEGATIVE); KETONES,URINE TRACE mg/dL (NEGATIVE); LEUKOCYTE ESTERASE,URINE NEGATIVE (NEGATIVE); NITRITE,URINE NEGATIVE (NEGATIVE); PROTEIN,URINE NEGATIVE (NEGATIVE); URINE SPECIFIC GRAVITY 1.016; UROBILINOGEN,URINE NEGATIVE mg/dL (<2.0)
[2019-06-02 05:57] LABS: URINE AMPHETAMINES SCREEN NEGATIVE; URINE BARBITURATES SCREEN NEGATIVE; URINE BENZODIAZEPINES SCREEN NEGATIVE; URINE COCAINE SCREEN NEGATIVE; URINE MARIJUANA (THC) SCREEN NEGATIVE; URINE METHADONE SCREEN NEGATIVE; URINE PHENCYCLIDINE SCREEN NEGATIVE
--- NOTE | 2019-06-02 06:24 | EKG REPORT ---
SEVERITY:- BORDERLINE ECG - SINUS RHYTHM BORDERLINE LEFT AXIS DEVIATION BORDERLINE T ABNORMALITIES, DIFFUSE LEADS : Confirmed by: Osman Delgado MD 02-Jun-2019 06:23:25
[2019-06-02] MEDS ORDERED: ALPRAZOLAM 0.5 MG TABLET PO ONE (13:06)
--- NOTE | 2019-06-02 13:18 | ER Document Report ---
Doctor's Note Notes: 06/02/19 13:06 S: Patient states "feeling better". Patient was brought into the emergency department last night from [facility] with complaints of "feeling unsafe" and anxiety. He has a history of a traumatic brain injury that occurred in 2009. He is in chronic pain management. He takes 4 mg of Dilaudid every 8 hours. His last dose was at midnight prior to arrival. He also takes 2 mg of Xanax has needed every 8 hours for his anxiety. He states that he is feeling anxious and he is having neck pain. Have spoken with Beth from our behavioral health team. Apparently Dr. Valadez is in a come and see the patient herself. Will await that rounding. Patient currently is denying SI, HI, hallucinations O: Constitutional: Sitting on stretcher in room in no acute distress. States that he is having anxiety and chronic neck pain Cardiac: Regular rate and rhythm. No murmurs, rubs, gallops Respiratory: No wheezes, rhonchi, rales. Clear to auscultation bilaterally. Abdomen: Nontender, nondistended, soft. Normal bowel sounds Skin: No rash, no diaphoresis Psych: Flat affect. states that he does not feel unsafe any longer. He states that he is feeling anxious. He denies SI, HI, hallucinations A/P: Patient in the emergency department for feeling "unsafe". He was brought in last night. He states that he is feeling better now. He has a history of TBI. He is telling me that he is feeling anxious. And he is also telling me that he is having chronic neck pain. We had a conversation that Dr. Valadez is planning on coming to see the patient. I am unwilling to give him both the Xanax and Dilaudid currently until she has evaluated him. Will give Xanax patient is aware of the plan.
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
== END 2019-06-02 18:00 | disposition home or self-care (01) ==
LOC: ER 03:05
DX: F41.9 Anxiety disorder, unspecified (principal); Z87.820 Personal history of traumatic brain injury
CPT/HCPCS: 93005; 99284; 36415; 80307 ×4; 85025; 80053; 81001; 93010; A9270 ×2

== ENCOUNTER 2019-11-05 19:44 | Emergency (ER) | payer OTHER, MEDICARE ==
--- NOTE | 2019-11-05 20:04 | ER Document Report ---
ED Medical Screen (RME) - General Stated Complaint: HEADACHE Time Seen by Provider: 11/05/19 19:58 Primary Care Provider: SON ROBERTS NP [Primary Care Provider] - Follow up as needed Mode of Arrival: Wheelchair Information source: Patient Notes: Patient is a 49-year-old male presenting to the emergency department with chief complaint of severe headache. Patient reports the headache started this evening. He states he has a history of a blood cancer that makes him more prone to having blood clots. He states he called his oncologist who directed him to go to the emergency department. He took 16 mg of Dilaudid prior to arrival and he states that did not help his headache at all. Patient is alert, oriented, no focal neurological deficits noted. I have greeted and performed a rapid initial assessment of this patient. A comprehensive ED assessment and evaluation of the patient, analysis of test results and completion of the medical decision making process will be conducted by additional ED providers. I have specifically instructed the patient or family members with the patient to immediately return to any nursing staff should anything change in the patient's condition or with their chief complaint. TRAVEL OUTSIDE OF THE [place] IN LAST 30 DAYS: No - Related Data Allergies/Adverse Reactions: No Known Allergies Allergy (Verified 03/30/18 11:53) Past Medical History - Past Medical History Cardiac Medical History: Reports: Hx Hypercholesterolemia Renal/ Medical History: Reports: Hx Renal Insufficiency. Denies: Hx End Stage Renal Disease - Chronic kidney disease, Hx Peritoneal Dialysis Psychiatric Medical History: Reports: Hx Anxiety, Hx Depression Traumatic Medical History: Reports: Hx Traumatic Brain Injury Past Surgical History: Reports: Hx Orthopedic Surgery - RIGHT SHOULDER - Immunizations Immunizations up to date: Yes Hx Diphtheria, Pertussis, Tetanus Vaccination: Yes Physical Exam - Vital signs Vitals: Temp Pulse Resp BP Pulse Ox 98.1 F 85 16 184/115 H 98 11/05/19 19:48 11/05/19 19:48 11/05/19 19:48 11/05/19 19:48 11/05/19 19:48 Course - Vital Signs Vital signs: Temp Pulse Resp BP Pulse Ox 98.1 F 85 16 184/115 H 98 11/05/19 19:48 11/05/19 19:48 11/05/19 19:48 11/05/19 19:48 11/05/19 19:48 Doctor's Discharge - Discharge Referrals: SON ROBERTS NP [Primary Care Provider] - Follow up as needed
--- NOTE | 2019-11-05 20:35 | RADIOLOGY REPORT (SQ) ---
EXAM DESCRIPTION: Noncontrast CT head CLINICAL HISTORY: 49 years Male HEADACHE/WORST EVER TECHNIQUE: Noncontrast CT head. All CT scans at this facility use dose modulation, iterative reconstruction, and/or weight based dosing when appropriate to reduce radiation dose to as low as reasonably achievable. COMPARISON: None. FINDINGS: [place] matter, white matter, ventricles, and cisterns are within normal limits. No acute hemorrhage or mass effect. Visualized portions of paranasal sinuses and mastoids are clear. Visualized portions of the calvarium are within normal limits. IMPRESSION: 1. No acute intracranial findings. If there is clinical concern for acute intracranial process, such as stroke, consider MRI brain as a more sensitive evaluation.
[2019-11-05] MEDS ORDERED: DRONABINOL 2.5 MG CAPSULE PO ONE (20:51)
--- NOTE | 2019-11-05 20:52 | ER Document Report ---
ED General - General Chief Complaint: Headache Stated Complaint: HEADACHE Time Seen by Provider: 11/05/19 19:58 Primary Care Provider: SON ROBERTS NP [Primary Care Provider] - Follow up as needed Mode of Arrival: Wheelchair Information source: Patient Notes: triage note Patient is a 49-year-old male presenting to the emergency department with chief complaint of severe headache. Patient reports the headache started this evening. He states he has a history of a blood cancer that makes him more prone to having blood clots. He states he called his oncologist who directed him to go to the emergency department. He took 16 mg of Dilaudid prior to arrival and he states that did not help his headache at all. Patient reports he has polycythemia vera and says he spoke with his oncologist Dr. Landis around 1800 tonight. He also took some Marinol earlier this morning and feels this would help his migraine headaches. He points to his right hoahaoism top of his head and occipital area as being mainly painful. Patient reports he has a history of hyperlipidemia for 10 years and takes Lipitor for this. Also he was diagnosed with polycythemia for the last 2 years. TRAVEL OUTSIDE OF THE [place] IN LAST 30 DAYS: No - HPI Onset: This morning Onset/Duration: Sudden, Persistent Quality of pain: Achy, Fullness Severity: Mild Pain Level: 1 Associated symptoms: Nausea Exacerbated by: Walking - Patient is using his Hoveround and has in the room with him. He also uses a cane as a support. Similar symptoms previously: Yes Recently seen / treated by doctor: No - Related Data Allergies/Adverse Reactions: No Known Allergies Allergy (Verified 03/30/18 11:53) Home Medications: Dilaudid. aspirin. Vitamin D. Lipitor. Malanor Past Medical History - General Information source: Patient - Social History Smoking Status: Never Smoker Cigarette use (# per day): No Chew tobacco use (# tins/day): No Smoking Education Provided: No Frequency of alcohol use: None Drug Abuse: None Family History: Reviewed & Not Pertinent Patient has suicidal ideation: No Patient has homicidal ideation: No - Past Medical History Cardiac Medical History: Reports: Hx Hypercholesterolemia Renal/ Medical History: Reports: Hx Renal Insufficiency. Denies: Hx End Stage Renal Disease - Chronic kidney disease, Hx Peritoneal Dialysis Psychiatric Medical History: Reports: Hx Anxiety, Hx Depression Traumatic Medical History: Reports: Hx Traumatic Brain Injury Past Surgical History: Reports: Hx Orthopedic Surgery - RIGHT SHOULDER - Immunizations Immunizations up to date: Yes Hx Diphtheria, Pertussis, Tetanus Vaccination: Yes Physical Exam - Vital signs Vitals: Temp Pulse Resp BP Pulse Ox 98.1 F 85 16 184/115 H 98 11/05/19 19:48 11/05/19 19:48 11/05/19 19:48 11/05/19 19:48 11/05/19 19:48 Interpretation: Hypertensive - HEENT Head: Normocephalic Eyes: Normal Conjunctiva: Normal Cornea: Normal Extraocular movements intact: Yes Eyelashes: Normal Pupils: PERRL Sinus: Normal Nasal: Normal Mouth/Lips: Normal Pharynx: Normal Neck: Normal, Other - Patient reports she has had a history of right carotid stenosis but no auscultated sounds are heard over his carotids - Respiratory Respiratory status: No respiratory distress Chest status: Nontender Breath sounds: Normal Chest palpation: Normal - Cardiovascular Rhythm: Regular Heart sounds: Normal auscultation Murmur: No Friction rub: No Laura's crunch: No - Extremities General upper extremity: Normal inspection General lower extremity: Normal inspection - Neurological Neuro grossly intact: Yes Cognition: Normal Orientation: AAOx4 [place] Coma Scale Eye Opening: Spontaneous [place]ik Coma Scale Verbal: Oriented Malik Coma Scale Motor: Obeys Commands [place] Coma Scale Total: 15 Speech: Normal Cranial nerves: Normal Cerebellar coordination: Normal Motor strength normal: LUE, RUE, LLE, RLE - Psychological Associated symptoms: Anxious - Skin Skin Temperature: Warm Skin Moisture: Dry Course - Vital Signs Vital signs: Temp Pulse Resp BP Pulse Ox 98.1 F 77 16 158/106 H 98 11/05/19 19:48 11/05/19 22:11 11/05/19 19:48 11/05/19 22:11 11/05/19 19:48 - Laboratory Result Diagrams: 11/05/19 20:58 11/05/19 20:58 Laboratory results interpreted by me: 11/05/19 11/05/19 20:58 20:58 RDW 16.4 H Plt Count 149 L Burleigh % (Auto) 13.5 H Potassium 3.4 L Critical Care Note - Critical Care Note Total time excluding time spent on procedures (mins): 90 Comments: When I confronted the patient about his high blood pressure he advises he normally runs 125/75 but when he comes out of his house he gets very anxious because he has agoraphobia. I advised him his blood work and CBC and electrolytes were all perfect. He says this was because he is eating "a lot of rice and chicken".. He reports his grandmother had hypertension and possibly his parents. I suspect this patient has denial about his hypertension. His pressure in the room was 167/97 and initially when he got here it was quite high. He reports the Toradol did work for his headache. Patient actually requested Marinol for his nausea. He reports he gets this when he has to travel outside of his house. He no longer takes Xanax because this makes his symptoms worse. I discussed the findings of the hypertension on orthostatics with this patient. He refuses to understand that he has hypertension saying that he has a 125/75 with his blood pressure cuff at home and he has Agoraphobia that causes white coat syndrome. Discharge - Discharge Clinical Impression: Polycythemia vera, Agoraphobia with panic attacks Migraine headache Qualifiers: Migraine type: unspecified Status migrainosus presence: without status migrainosus Intractability: not intractable Qualified Code(s): G43.909 - Migraine, unspecified, not intractable, without status migrainosus Hypertension Qualifiers: Hypertension type: unspecified Qualified Code(s): I10 - Essential (primary) hypertension Condition: Good Disposition: HOME, SELF-CARE Additional Instructions: Follow-up with your personal doctor about your problems and your blood pressure. Keep a calendar with written recorded blood pressures on a daily routine. Return to ER for emergencies take medicines as directed Prescriptions: Propranolol HCl [Inderal 20 mg Tablet] 20 mg PO DAILY #30 tablet Dronabinol [Marinol 2.5 mg Capsule] 2.5 mg PO DAILY PRN #10 capsule PRN Reason: Referrals: SON ROBERTS NP [Primary Care Provider] - Follow up as needed
[2019-11-05] MEDS ORDERED: LABETALOL HCL INJ 20 MG/4 ML DISP.SYRIN IV ONE (20:53)
[2019-11-05 21:16] LABS: ABSOLUTE EOSINOPHILS # (AUTO) 0.1 10^3/uL (0.0-0.6); ABSOLUTE LYMPHOCYTES (AUTO) 2.5 10^3/uL (0.5-4.7); ABSOLUTE NEUT (AUTO) 3.6 10^3/uL (1.7-8.2); BASOPHILS % (AUTO) 0.6 % (0-2); EOSINOPHILS % (AUTO) 0.8 % (0-6); HEMATOCRIT 43.8 % (37.9-51.0); MEAN CORPUSCULAR HEMOGLOBIN 29.5 pg (27.0-33.4); MEAN CORPUSCULAR HGB CONC 34.3 g/dL (32.0-36.0); MEAN CORPUSCULAR VOLUME 86 fl (80-97); MONOCYTES % (AUTO) 13.5 % (3-13); PLATELET COUNT 149 10^3/uL (150-450); RED CELL DISTRIBUTION WIDTH 16.4 % (11.5-14.0); SEGMENTED NEUTROPHILS % (AUTO) 50.1 % (42-78); TOTAL CELLS COUNTED % (AUTO) 100 %; WHITE BLOOD COUNT 7.2 10^3/uL (4.0-10.5)
[2019-11-05] MEDS ORDERED: PROCHLORPERAZINE EDISYLATE INJ 10 MG/2 ML VIAL IV ONE (21:17)
[2019-11-05 21:20] LABS: INTERNATIONAL RATION (INR) 1.12; PROTHROMBIN TIME 14.5 SEC (11.4-15.4)
[2019-11-05 21:21] LABS: PARTIAL THROMBOPLASTIN TIME 31.9 SEC (23.5-35.8)
[2019-11-05] MEDS ORDERED: KETOROLAC TROMETHAMINE INJ/PF 30 MG/1 ML SDV IV ONE (21:21)
[2019-11-05] MEDS ORDERED: NORMAL SALINE 1000 ML 1,000 ML IV ONE (21:23)
[2019-11-05 21:39] LABS: ALBUMIN 3.7 g/dL (3.5-5.0); ALKALINE PHOSPHATASE 85 U/L (38-126); ANION GAP 9 (5-19); ASPARTATE AMINO TRANSFERASE 25 U/L (17-59); BILIRUBIN,TOTAL 0.4 mg/dL (0.2-1.3); BLOOD UREA NITROGEN 11 mg/dL (7-20); CALCIUM 9.1 mg/dL (8.4-10.2); CARBON DIOXIDE 25 mmol/L (22-30); CHLORIDE 105 mmol/L (98-107); GLUCOSE 107 mg/dL (75-110); POTASSIUM 3.4 mmol/L (3.6-5.0); TOTAL PROTEIN 6.3 g/dL (6.3-8.2)
[2019-11-05] MEDS ORDERED: DRONABINOL 2.5 MG CAPSULE ONE (21:54)
[2019-11-05 23:03] VITALS: BP 166/92
== END 2019-11-05 23:08 | disposition home or self-care (01) ==
LOC: ER 19:44
DX: G43.909 Migraine, unspecified, not intractable, without status migrainosus (principal); I10 Essential (primary) hypertension; D45 Polycythemia vera; F40.01 Agoraphobia with panic disorder; E78.5 Hyperlipidemia, unspecified; Z79.899 Other long term (current) drug therapy; Z79.891 Long term (current) use of opiate analgesic; Z79.82 Long term (current) use of aspirin
CPT/HCPCS: 99285; 96361; 96374; 36415; 85025; 85610; 85730; 80053; 70450; A9270; J1885; J7030